=== PATIENT | male | born 1990 | race Caucasian/White ===

== ENCOUNTER 2020-08-14 19:00 | Emergency (ER) | payer SELFPAY ==
[~2020-08-14] VITALS: Ht 180.3 cm; Wt 81.7 kg
[~2020-08-14 19:00] MED LIST: CLINDAMYCIN HC300 MG PO; NORCO 5-325 TA1 EACH PO; SEPTRA DS TABL1 EACH PO
== END 2020-08-14 20:57 | disposition home or self-care (01) ==
LOC: ED 19:00
DX: F41.9 Anxiety disorder, unspecified (principal); F17.200 Nicotine dependence, unspecified, uncomplicated; Z88.0 Allergy status to penicillin
CPT/HCPCS: 99283